=== PATIENT | female | born 1995 | race Hispanic/Latino ===

== ENCOUNTER 2020-01-16 15:35 | Emergency (ER) | payer OTHER ==
[~2020-01-16] VITALS: Ht 149.9 cm; Wt 46.0 kg
--- NOTE | 2020-01-16 16:34 | Diagnostic Imaging Report ---
EXAM: CXR 1 [facility] DATE: 01/16/2020 12:00 AM INDICATION: Headache, cough COMPARISON: None FINDINGS: The trachea is midline. The lungs are symmetrically expanded without evidence for large focal consolidation, pneumothorax, or significant pleural effusion. The cardiomediastinal silhouette and pulmonary vasculature are within normal limits. No acute osseous abnormality is identified. The surrounding soft tissues are unremarkable. IMPRESSION: No acute cardiopulmonary process identified. Signed by: Dr. Teddy Solares MD on 01/16/2020 4:30 PM
[2020-01-16] MEDS ORDERED: KEFLEX500 MG PO (17:22)
[2020-01-16] MEDS ORDERED: PEPCID20 MG PO (17:24)
[2020-01-16 17:28] VITALS: BP 110/74
== END 2020-01-16 17:35 | disposition home or self-care (01) ==
LOC: FSED 15:35
DX: R07.2 Precordial pain (principal); R05 Cough; J20.9 Acute bronchitis, unspecified; R51 Headache; Z86.79 Personal history of other diseases of the circulatory system; F17.210 Nicotine dependence, cigarettes, uncomplicated
CPT/HCPCS: 36415; 71045; 80053; 80076; 81025; 82948; 83518; 84484; 85025; 85379; 87400; 93005; 99284